=== PATIENT | male | born 1995 | race Caucasian/White ===

== ENCOUNTER 2021-03-21 12:28 | Outpatient (CLI) | payer OTHER, SELFPAY ==
--- NOTE | ~2021-03-21 | XR_ITS ---
XR cervical spine 4-5V DATE: 03/21/2021 12:56 INDICATION: Neck pain, cervical radiculopathy. TECHNIQUE: AP, open-mouth, lateral views COMPARISON: None FINDINGS: There is reversal of the lower cervical curvature. There is minimal dextroscoliosis of the cervical spine and levoscoliosis of the upper thoracic spine. Bilateral cervical ribs. C1 and C2 are normally aligned and the odontoid process is intact. No fracture or dislocation, locked facet or prevertebral soft tissue swelling. Mild loss of interspace height at C5-6 and C6-7. IMPRESSION: Reversal of lower cervical curvature and minimal dextroscoliosis of the cervical spine Mild loss of interspace height at C5-6 and C6-7 Bilateral cervical ribs Reviewed, dictated and finalized at location A.
--- NOTE | ~2021-03-21 | XR_ITS ---
XR thoracic spine 3V DATE: 03/21/2021 12:56 INDICATION: Back pain, neck pain TECHNIQUE: Standing AP and lateral views, swimmer view COMPARISON: None FINDINGS: There is mild dextro scoliosis of the thoracic spine. Bilateral cervical ribs are noted. No fracture or dislocation or bone destruction of the thoracic spine. The thoracic pedicles are intac t. No paraspinal soft tissue thickening. IMPRESSION: Bilateral cervical ribs Mild thoracic dextroscoliosis Reviewed, dictated and finalized at location A.
== END 2021-03-21 12:29 ==
DX: M54.12 Radiculopathy, cervical region (principal)
CPT/HCPCS: 72050; 72072

== ENCOUNTER → 2021-04-18 11:43 | Outpatient (CLI) | payer OTHER, SELFPAY ==
--- NOTE | ~2021-04-18 | MR_ITS ---
EXAMINATION: MR cervical spine wo con DATE: 04/18/2021 12:28 INDICATION: Cervical radiculopathy. TECHNIQUE: Magnetic resonance imaging (MRI) of the cervical spine was performed without intravenous c ontrast. Sequences included sagittal T2-weighted FSE, sagittal STIR FSE, sagittal T1-weighted FSE, ax ial MERGE, and axial T2-weighted FSE. COMPARISON: Cervical spine radiographs 03/31/2021 FINDINGS: There is kyphosis of cervical spine. Vertebral body heights are normal. There is mildly dec reased disc height at C5-C6. The spinal cord signal intensity is normal. The following disc levels ar e specifically discussed: C2-C3 through C4-C5: The disc does not extend beyond the endplate margin. There is no uncovertebral j oint osteoarthritis. There is no facet joint osteoarthritis. There is no neural foraminal stenosis. T here is no central canal stenosis. C5-C6: There is an extrusion in right lateral recess with severe stenosis of right lateral recess. Th ere is no uncovertebral joint osteoarthritis. There is no facet joint osteoarthritis. There is mild r ight neural foraminal stenosis. There is mild central canal stenosis. There is severe stenosis of rig ht lateral recess with indentation of the spinal cord. C6-C7: The disc does not extend beyond the endplate margin. There is no uncovertebral joint osteoarth ritis. There is no facet joint osteoarthritis. There is no neural foraminal stenosis. There is no alvaro tral canal stenosis. C7-T1: The disc does not extend beyond the endplate margin. There is no uncovertebral joint osteoarth ritis. There is mild bilateral facet joint osteoarthritis. There is no neural foraminal stenosis. The re is no central canal stenosis. IMPRESSION: 1. Extrusion at C5-C6 with severe stenosis of right lateral recess. Reviewed, dictated and finalized at location A.
--- NOTE | ~2021-04-18 | MR_ITS ---
EXAMINATION: MR thoracic spine wo con DATE: 04/18/2021 12:34 INDICATION: Thoracic back pain. TECHNIQUE: Magnetic resonance imaging (MRI) of the thoracic spine was performed without intravenous c ontrast. Sagittal localizer T1-weighted FSE of the cervical spine was obtained. Thoracic spine sequen naina included sagittal T2-weighted FSE, sagittal T1-weighted FSE, sagittal STIR FSE, and axial T2-weig hted FSE. COMPARISON: Thoracic spine radiographs 03/21/2021 FINDINGS: There is 6 degrees dextrocurvature of thoracic spine. There are Schmorl's nodes at T10-T11, T11-T12, and T12-L1. Intervertebral disc heights are normal. The facet joints are normal. No neural foraminal stenosis or central canal stenosis. The disc does not extend beyond the endplate margins. IMPRESSION: 1. No etiology for the patient's symptoms. Reviewed, dictated and finalized at location A.
== END ==
DX: M54.12 Radiculopathy, cervical region (principal); M48.02 Spinal stenosis, cervical region
CPT/HCPCS: 72141; 72146

== ENCOUNTER 2021-04-26 05:29 | Emergency (ER) | payer OTHER, SELFPAY ==
[2021-04-26 05:32] VITALS: BP 137/84; PULSE 60; RESP 17; TEMP 35.9; O2SAT 97
--- NOTE | 2021-04-26 08:09 | ED.GENADULT ---
HPI - General Adult General Chief complaint: Neck Pain/Injury Stated complaint: neck pain Time Seen by Provider: 04/26/21 08:04 Source: patient and family Mode of arrival: ambulatory Limitations: no limitations History of Present Illness HPI narrative: Patient is 25 years old white male presents with pain at the neck posteriorly and right upper extremity, no comfortable position for the last 7 weeks, got worse over the last few days,. Patient had MRI 1 week ago which showed bulging disc at C5-C6 and cervical stenosis. Patient is started on prednisone and gabapentin yesterday, could not sleep last night. Patient scheduled to see a neurosurgeon in 6 days. Patient denies any numbness, tingling, weakness of the right upper extremity. Related Data Home Medications Medication Instructions Recorded Confirmed dextroamphetamine-amphetamine 04/26/21 gabapentin 04/26/21 methylprednisolone mg 04/26/21 Allergies Allergy/AdvReac Type Severity Reaction Status Date / Time No Known Allergies Allergy Verified 04/26/21 07:35 Review of Systems Review of Systems: CONSTITUTIONAL: Denies fever, chills, or sweats. EYES: Denies visual changes, redness, or discharge. ENT: Denies rhinorrhea, congestion, sore throat, or otalgia. CARDIOVASCULAR: Denies chest pain, palpitations, or edema. RESPIRATORY: Denies cough or dyspnea. GASTROINTESTINAL: Denies abdominal pain, nausea, vomiting, or diarrhea. GENITOURINARY: Denies dysuria or hematuria. SKIN: Denies rash or itching. MUSCULOSKELETAL: Denies back pain, joint pain, or myalgia. NEUROLOGIC: Denies headache, numbness, or weakness. PSYCHIATRIC: Denies anxiety or depression. Exam Narrative: General appearance: Well-developed, well-nourished, looks uncomfortable patient is putting his right hand on top of his head Skin: Normal color Neck: Supple, nontender Chest and respiratory: Airway patent, no respiratory distress, no accessory muscle use Heart: Regular rate/rhythm Vascular: Normal peripheral pulses, normal capillary refill. Musculoskeletal: Normal range of motion, nontender back Neurologic: Alert and oriented ?3, KEY PERSON is normal as tested, no gross motor deficit Course Course Emergency Course: Stable Vital Signs Vital signs: Vital Signs Temperature 35.9 C L 04/26/21 05:32 Pulse Rate 60 04/26/21 05:32 Respiratory Rate 17 04/26/21 05:32 Blood Pressure 137/84 04/26/21 05:32 Pulse Oximetry 97 04/26/21 05:32 Temperature 35.9 C L 04/26/21 08:52 Pulse Rate 60 04/26/21 05:32 Respiratory Rate 17 04/26/21 05:32 Blood Pressure 137/84 04/26/21 05:32 Pulse Oximetry 97 04/26/21 05:32 Medical Decision Making MDM Narrative Medical decision making narrative: Cervical radiculopathy is my concern Differential Diagnosis Differential Diagnosis: Cervical radiculopathy Vital Signs Vital Signs: Vital Signs Temperature 35.9 C L 04/26/21 05:32 Pulse Rate 60 04/26/21 05:32 Respiratory Rate 17 04/26/21 05:32 Blood Pressure 137/84 04/26/21 05:32 Pulse Oximetry 97 04/26/21 05:32 Temperature 35.9 C L 04/26/21 08:52 Pulse Rate 60 04/26/21 05:32 Respiratory Rate 17 04/26/21 05:32 Blood Pressure 137/84 04/26/21 05:32 Pulse Oximetry 97 04/26/21 05:32 Critical Care Time Critical Care Time Critical Care Time: Yes Total Critical Care Time: 20 Discharge Plan Discharge Clinical Impression: Cervical radiculopathy Patient Disposition: Home, Self-Care Condition: Stable Instructions: Cervical Radiculopathy (ED) Additional Instructions: Return if symptoms are worsening , call your family physician/your neurosurgeon for appointment, take ib
[2021-04-26] MEDS: KETOROLAC (*BKC) 60 MG/2 ML VIAL IM (08:18)
[2021-04-26] MEDS: ONDANSETRON HCL ODT 4 MG TABLET PO (08:18)
[2021-04-26] MEDS: HYDROmorphone HCL INJ (*CRX) 1 MG/ML SYR IM (08:22)
[2021-04-26 08:48] VITALS: TEMP 35.9
[2021-04-26 08:52] VITALS: TEMP 35.9
[2021-04-26 09:50] VITALS: BP 136/74; PULSE 74; RESP 18; O2SAT 98
== END 2021-04-26 09:52 | disposition home or self-care (01) ==
PROVIDERS: Emergency Provider Emergency Medicine
DX: M54.12 Radiculopathy, cervical region (principal)
CPT/HCPCS: 96372; 99284; A9270; J1170; J1885

== ENCOUNTER → 2022-10-12 08:02 | Outpatient (CLI) | payer BC, SELFPAY ==
--- NOTE | ~2022-10-12 | MR_ITS ---
EXAMINATION: MR cervical spine wo con DATE: 10/12/2022 08:31 INDICATION: Neck pain. TECHNIQUE: Magnetic resonance imaging (MRI) of the cervical spine was performed without intravenous c ontrast. Sequences included sagittal T2-weighted FSE, sagittal T2-weighted FS FSE, sagittal T1-weight ed FSE, axial MERGE, and axial T2-weighted FSE. COMPARISON: Cervical spine MRI 04/18/2021 FINDINGS: There is 7 degrees levocurvature of cervicothoracic spine. Vertebral body heights are shelly l. There is mildly decreased disc height at C5-C6. The spinal cord signal intensity is normal. The fo llowing disc levels are specifically discussed: C2-C3: The disc does not extend beyond the endplate margin. There is no uncovertebral joint osteoarth ritis. There is mild bilateral facet joint osteoarthritis. There is no neural foraminal stenosis. The re is no central canal stenosis. C3-C4: The disc does not extend beyond the endplate margin. There is no uncovertebral joint osteoarth ritis. There is mild bilateral facet joint osteoarthritis. There is no neural foraminal stenosis. The re is no central canal stenosis. C4-C5: There is a right central extrusion. There is no uncovertebral joint osteoarthritis. There is n o facet joint osteoarthritis. There is no neural foraminal stenosis. There is no central canal stenos is. C5-C6: The disc is bulging with superimposed extrusion in right lateral recess. The extrusion demonst rates interval change in morphology, but similar mass effect. There is mild bilateral uncovertebral j oint osteoarthritis. There is no facet joint osteoarthritis. There is moderate right and mild left ne ural foraminal stenosis. There is mild central canal stenosis. There is severe stenosis of right late ral recess. C6-C7: There is a right central extrusion. There is no uncovertebral joint osteoarthritis. There is n o facet joint osteoarthritis. There is no neural foraminal stenosis. There is mild central canal sten osis. C7-T1: The disc does not extend beyond the endplate margin. There is no uncovertebral joint osteoarth ritis. There is moderate bilateral facet joint osteoarthritis. There is no neural foraminal stenosis. There is no central canal stenosis. IMPRESSION: 1. Moderate spondylosis at C5-C6, stable from 04/18/2021. Reviewed, dictated and finalized at location A. [employer]
== END ==
PROVIDERS: Visit Provider Nurse Practitioner Adult Health
DX: M47.892 Other spondylosis, cervical region (principal)
CPT/HCPCS: 72141

== ENCOUNTER 2022-10-30 11:15 | Outpatient (CLI) | payer BC, SELFPAY ==
--- NOTE | ~2022-10-30 | XR_ITS ---
EXAMINATION:XR cervical spine 4-5V DATE: 10/30/2022 11:43 INDICATION: Neck pain TECHNIQUE: AP and lateral in neutral, flexion, and extension views of the cervical spine are provided . COMPARISON: 04/10/2021 FINDINGS: Bone alignment is normal. There is no hypermobility with flexion or extension. There is mil d loss of intervertebral disc space height at C5-6. The vertebral body heights are normal. Prevertebr al soft tissues are normal. IMPRESSION: 1. Moderate cervical spondylosis at C5-6. Reviewed, dictated and finalized at location B. [employer] REPRESENTATIVE
== END 2022-10-30 11:16 | disposition home or self-care (01) ==
LOC: ANHIMG 11:20
PROVIDERS: Visit Provider Nurse Practitioner Adult Health
DX: M47.812 Spondylosis without myelopathy or radiculopathy, cervical region (principal)
CPT/HCPCS: 72050